=== PATIENT | male | born 1990 | race Caucasian/White ===

== ENCOUNTER → 2024-03-24 09:10 | Outpatient (BNVA) | payer SELFPAY | PROVIDERS: PCP Nurse Practitioner Family; Visit Provider Physician Assistant Medical | DX: Z02.79 Encounter for issue of other medical certificate (principal) ==

== ENCOUNTER 2025-02-11 11:31 | Outpatient (AMB) | payer OTHER, SELFPAY ==
[2025-02-11 11:33] VITALS: BP 122/80; PULSE 71; RESP 18; TEMP 36.8; O2SAT 96; BMI 28.8
--- NOTE | 2025-02-11 11:33 | A.OFFPC_ITS ---
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 Allergies No Known Allergies (No Known Allergies*) Allergy (Unverified 02/11/25 11:35) Tobacco use date assessed: 02/11/25 Dental Screening Dental Screen Date: 02/11/25 Did you have a dental visit in the last 12 months?: No Did you have a dental problem in the last 6 months where you did not have access to dental care?: Yes Was dental information given to patient?: Yes HPI MANAGEMENT RETAIL INTERN 1st Visit HPI Details History of Present Illness The patient is a 34-year-old male (NEW PT) presenting for a physical examination. He denies experiencing any chest pain, dyspnea, abdominal pain, changes in stool, constipation, diarrhea, or any suicidal or homicidal ideations. The patient reports having a large external hemorrhoid, which was diagnosed previously and does not currently cause discomfort. The hemorrhoid was observed during the examination today. Health Maintenance Social History Review of Systems - Cardiovascular: Denies chest pain - Respiratory: Denies dyspnea - Gastrointestinal: Denies abdominal maximiliano n, changes in stool, constipation, diarrhea - Psychiatric: Denies suicidal ideation, denies homicidal ideation Physical Exam General: Cooperative, healthy appearing, comfortable, no acute distress and well developed Orientation: Patient oriented x3 Limitations: No limitations Head: Normal to inspection Ears: Hearing grossly normal bilaterally Nose: Normal external nose present Face and sinus: Normal facial exam Eyes: Appearance normal, both eyes and all related structures Neck: Normal visual inspection and Yes full ROM Respiratory: Normal respiratory effort and able to speak in complete sentences. Clear to auscultation bilaterally Cardiovascular: Regular rate and rhythm. Normal S1 and S2 GI: Normal to inspection. Soft to palpation and nontender. Large external hemorrhoid noted : testicles without masses/lesions and no hernias appreciated Skin: No rashes or lesions noted Neuro: Patient oriented x3 Extremities: Normal to inspection Results Plan The patient will be scheduled for laboratory tests in the near future, which will require fasting. [facility] Medical History (Updated 02/11/25 @ 12:10 by ANEL Faye) External hemorrhoid Surgical History History of hernia surgery Hx of appendectomy Family History Father Heart attack Hypertension Mother No problems noted. Maternal Grandmother Diabetes Social History Housing: House Patient Tobacco Use Status: Current someday Tobacco user Cigarettes Per Day: 1 e-Cigarette/Vaping Use: Currently Using service: No Current occupational status: employed Cognitive needs: No Hearing needs: No Vision needs: Yes Questionnaire Thrive Questionnaire Date Thrive assessed: 10/06/24 I am a: Patient What is your living situation today?: I have a steady place to live Within the past 12 months, did the food you bought not last and you didn't have the money to get more?: Never true Within the past 12 months, did you worry whether your food would run out before you got money to buy more?: Never true Do you have trouble paying for medicines?: No Do you have trouble getting transportation to medical appointments?: No Do you have trouble paying your heating and electricity bill?: No Do you have trouble taking care of your child, family member or friend?: No Do you have trouble with day-to-day activities such as bathing, preparing meals, shopping, managing finances, etc.?: No Are you currently unemployed and looking for a job?: No Are you interested in more education?: No Please select the resources that you would like help with: None Currently or been in a relationship where the following occur: No concerns reported THRIVE Score: 0 LUIS CARLOS-7 AMB Questionnaire LUIS CARLOS-7 Date LUIS CARLOS - 7 assessed: 10/08/24 Source: Developed by Drs. Oz Bailey, Kenya Chaves, Basilio Danielle and colleagues, with an educational louie from [employer]. Physical exam (Primary Care) Vital Signs: Last Vital Signs Temp 98.3 F 02/11/25 11:33 Pulse 71 02/11/25 11:33 Resp 18 02/11/25 11:33 BP 122/80 02/11/25 11:33 Pulse Ox 96 02/11/25 11:33 Oxygen Delivery Method Room Air 02/11/25 11:33 BMI result Body Mass Index 28.8 Tobacco/Smoking Status: Tobacco use Status Tobacco use date assessed 02/11/25 02/11/25 11:38 Patient Tobacco Use Status Current someday Tobacco 02/11/25 11:38 e-Cigarette/Vaping Use Currently Using 02/11/25 11:33 Thrive Assessment: Date of Thrive Assessment Date Thrive assessed 10/06/24 02/11/25 11:33 Currently or been in a relationship where the following occur: No concerns reported Coding Level of Care Code New Pt Prev Care [id number]([id number] Diagnoses Physical exam Z00. External hemorrhoid K64.4 Assessment & Plan Assessment & Plan (1) Physical exam: Code(s): Z00.00 - Encounter for general adult medical examination without abnormal findings Category: Medical (2) External hemorrhoid: Code(s): K64.4 - Residual hemorrhoidal skin tags Category: Medical Plan . Orders: Orders TSH reflex Free T4 Today Z00.00 - Encounter for general adult medical examinat ion without abnormal findings UA CC w/rflx Micro + Cult Today Z00.00 - Encounter for general adult medical examination without abnormal findings Complete Blood Count Auto Diff Today Z00.00 - Encounter for general adult medical examination without abnormal findings Comprehensive Mckee. Panel Fast Today Z00.00 - Encounter for general adult medical examination without abnormal findings Lipid Panel Today Z00.00 - Encounter for general adult medical examination without abnormal findings
--- OUTSIDE RECORDS SUMMARY | 2025-02-11 12:10 | XMS_ITS | Clinical Summary ---
Author Organization [employer] Address [address] [place] [address] Care Team Providers Care Sales Floor Team Member Name Role Phone Unavailable Primary Care Provider Unavailabl e Social History Tobacco Use Types Packs/Day Years Used Date Smoking Tobacco: Never Assessed Sex and Gender Information Value Date Recorded Sex Assigned at Male 03/17/2024 3:41 PM EDT Legal Sex Male 3:40 PM EDT Gender Identity Male 03/17/2024 3:41 PM EDT Sexual Orientation Not on file Plan of Treatment Health Maintenance Due Date Last Done Comments Depression Screening 1988 HIV Screening 1988 Lipid Panel 1988 SDOH Screening 1988 Disability Screening 1988 Alcohol/Substance Use Screening 2000 Tobacco Screening 2000 Family Planning (PISQ) 2003 Hepatitis C Screening 2006 DTaP/Tdap/Td Vaccines (1 - Tdap) 2007 Hepatitis B Vaccines (1 of 3 - 19+ 3-dose series) 2007 COVID-19 Vaccine ( - 2023-2 5 season) 2024 Influenza Vaccine (#1) 2025 Zoster Vaccines (1 of 2) 2038 RSV Patients and Pa tients Aged 60 years or older (1 - 1-dose 75+ series) 2063 HIB Vaccines Aged Out No longer eligi ble based on patient's age to complete this topic HPV Vaccines Aged Out No longer eligi ble based on patient's age to complete this topic Hepatitis A Vaccines Aged Out No long er eligible based on patient's age to complete this topic IPV Vaccines Aged Out No longer eligi ble based on patient's age to complete this topic Meningococcal B Vaccine Aged Out No l onger eligible based on patient's age to complete this topic Meningococcal Vaccine Aged Out No nehemias jennie eligible based on patient's age to complete this topic Pneumococcal Vaccine: Pediat rics (0 to 5 Years) and At-Risk Patients (6 to 49) Years Aged Out No longer eligible b ased on patient's age to complete this topic RSV under 20 months Aged Out No longe r eligible based on patient's age to complete this topic Rotavirus Vaccines Aged Out No longer eligible based on patient's age to complete this topic Insurance , [address] [id number]
== END 2025-02-11 13:35 | disposition home or self-care (01) ==
LOC: HO.HMCC 11:32
PROVIDERS: PCP Nurse Practitioner Family; Visit Provider Nurse Practitioner Family
DX: Z00.00 Encounter for general adult medical examination without abnormal findings (principal); K64.4 Residual hemorrhoidal skin tags

== ENCOUNTER → 2025-02-15 12:38 | Outpatient (BNVA) | payer SELFPAY | PROVIDERS: PCP Nurse Practitioner Family; Visit Provider Physician Assistant Medical | DX: Z02.79 Encounter for issue of other medical certificate (principal) ==